=== PATIENT | female | born 1995 | race Caucasian/White ===

== ENCOUNTER 2016-10-20 03:35 | Emergency (ER) | payer OTHER ==
[2016-10-20 03:41] VITALS: BP 94/54; PULSE 101; RESP 18; TEMP 98.2; O2SAT 96
[2016-10-20] MEDS ORDERED: ONDANSETRON HCL 4 MG/2 ML VIAL IM ONE (03:45)
--- NOTE | 2016-10-20 03:49 | PD ---
HPI Chief Complaint: Alcohol/Drug Intoxication Time Seen by Provider: 03:42 Travel History International Travel<30 days: No Contact w/Intl Traveler<30days: No Traveled to known affect area: No History of Present Illness HPI 22-year-old female here for alcohol intoxication. Patient states that she was drinking heavily with girlfriend this evening. She was found passed out on [address] [facility] [address] outside of a bar along with her girlfriend who had similar symptoms. Patient is alert, oriented, though falls asleep without stimulation. Admits to drinking heavily tonight. Feels nauseous and per EMS had some vomiting. Patient denies any other complaints. PFSH Past Medical History Medical History: Denies Significant Hx ?: Unknown Past Surgical History Surgical History: No Previous Surgery Social History Alcohol Use: Yes Tobacco Use: No Substance Use: No Allergies-Medications (Allergen,Severity, Reaction): Coded Allergies: No Known Allergies (Unverified , 10/20/16) Reported Meds & Prescriptions Reported Meds & Active Scripts Active No Active Prescriptions or Reported Medications Review of Systems ROS Limitations: Intoxication, Poor Historian Physical Exam Exam Limitations: Intoxication, Poor Historian Narrative GENERAL: Young female in no acute distress SKIN: Focused skin assessment warm/dry. HEAD: Atraumatic. Normocephalic. EYES: Pupils equal and round. No scleral icterus. No injection or drainage. ENT: No nasal bleeding or discharge. Mucous membranes pink and moist. NECK: Supple CARDIOVASCULAR: Regular rate and rhythm. RESPIRATORY: No accessory muscle use. GASTROINTESTINAL: Abdomen soft, non-tender, nondistended. MUSCULOSKELETAL: Moves all extremities normally NEUROLOGICAL: Awake, alert to person, place, time though drowsy and will follow asleep without stimulation. Moves all 4 extremities strong, unsteady gait with slurred speech. Data Data Last Documented VS Vital Signs Date Time Temp Pulse Resp B/P Pulse Ox O2 Delivery O2 Flow Rate FiO2 10/20/16 03:41 98.2 101 18 94/54 96 Orders Ondansetron Inj (Zofran Inj) (10/20/16 03:45) [facility] Medical Decision Making Medical Screen Exam Complete: Yes Emergency Medical Condition: Yes Medical Record Reviewed: Yes Differential Diagnosis 21-year-old female here for alcohol intoxication, admits to drinking heavily this evening. There are no external signs of trauma, clinically her history and presentation are consistent with alcohol intoxication. Narrative Course Patient placed on monitor. Given Zofran IM, Gatorade for oral rehydration. Patient was given ample time to sleep off her alcohol intoxication in the emergency department. She is able to ambulate independently, clinically sober and discharged home with safe ride. Diagnosis Primary Impression: Alcohol intoxication Qualified Code: F10.920 - Alcoholic intoxication without complication Referrals: [facility] as needed Additional Instructions: I suggest you either cutback and/or quit drinking. Med/Other Pt SpecificInfo: No Change to Meds Scripts No Active Prescriptions or Reported Meds Disposition: DISCHARGE HOME Condition: Stable Mariola Pacheco MD Oct 20, 2016 03:49
[2016-10-20 07:12] VITALS: BP 100/59
== END 2016-10-20 07:28 | disposition home or self-care (01) ==
LOC: NEPE 03:35
DX: F10.920 Alcohol use, unspecified with intoxication, uncomplicated (principal)
CPT/HCPCS: 96372; 99284; J2405